=== PATIENT | male | born 2005 | race Caucasian/White ===

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

== ENCOUNTER 2024-04-03 16:50 | Emergency (ER) | payer BC ==
[~2024-04-03] VITALS: Ht 182.9 cm; Wt 74.8 kg
[2024-04-03 16:51] VITALS: O2SAT 99
[2024-04-03 16:55] VITALS: BP 109/49; PULSE 58; RESP 16; TEMP 98.6; O2SAT 99
== END 2024-04-03 19:34 | disposition home or self-care (01) ==
LOC: ER 16:50
DX: S63.502A Unspecified sprain of left wrist, initial encounter (principal); W18.39XA Other fall on same level, initial encounter; Y93.66 Activity, soccer; Y92.89 Other specified places as the place of occurrence of the external cause; Y99.8 Other external cause status
CPT/HCPCS: 73110; 99283

== ENCOUNTER → 2024-06-09 | Outpatient (CLI) | payer BC ==
[2024-06-09 12:53] LABS: CLARITY URINE CLEAR (CLEAR); COLOR URINE YELLOW (YELLOW); GLUCOSE URINE NEGATIVE (NEGATIVE); KETONES URINE NEGATIVE (NEGATIVE); NITRITE URINE NEGATIVE (NEGATIVE); OCCULT BLOOD URINE NEGATIVE (NEGATIVE); PROTEIN URINE NEGATIVE (NEGATIVE); SPECIFIC GRAVITY URINE 1.025 (1.005-1.030)
[2024-06-09 12:54] LABS: LEUKOCYTE ESTERASE URINE NEGATIVE (NEGATIVE); UROBILINOGEN URINE 0.2 E.U./dL (0.2-1.0)
[2024-06-09 13:03] LABS: CARBON DIOXIDE 29 mEq/L (21-32); CHLORIDE 105 mEq/L (98-107); POTASSIUM 4.2 mEq/L (3.5-5.1); SODIUM 139 mEq/L (136-145)
[2024-06-09 13:04] LABS: BASOPHILS % 0.7 % (0.0-2.0); CALCIUM 9.9 mg/dL (8.7-10.4); EOSINOPHILS % 3.2 % (0.0-5.0); HEMATOCRIT. 45.1 % (42.0-52.0); HEMOGLOBIN. 14.7 g/dL (14.0-18.0); LYMPHOCYTES % 44.3 % (20.0-50.0); MEAN CORPUSCULAR HEMOGLOBIN 28.8 pg (28.0-32.0); MEAN CORPUSCULAR HGB CONC 32.6 g/dL (31.0-37.0); MEAN CORPUSCULAR VOLUME 88.4 fL (80.0-94.0); MEAN PLATELET VOLUME 8.3 fl (7.4-10.4); MONOCYTES % 5.3 % (2.0-8.0); NEUTROPHILS % 46.5 % (40.0-76.0); PLATELET 220 x1000/uL (130-400); RED CELL DISTRIBUTION WIDTH 13.3 % (11.6-14.6); WHITE BLOOD COUNT 4.4 x1000/uL (4.5-11.0)
[2024-06-09 13:08] LABS: CREATININE 1.2 mg/dL (0.6-1.3); GLUCOSE 91 mg/dL (70-105); IRON 102 ug/dL (65-175)
[2024-06-09 13:09] LABS: TRIGLYCERIDE 131 mg/dL (0-150); UREA NITROGEN BLOOD 12 mg/dL (9-23)
[2024-06-09 13:10] LABS: ALANINE AMINOTRANSFERASE 10 IU/L (10-49); ALBUMIN 4.7 g/dL (3.2-4.8); ASPARTATE AMINOTRANSFERASE 13 IU/L (<34); LDL CHOLESTEROL 124 mg/dL (5-100)
[2024-06-09 13:11] LABS: BILIRUBIN TOTAL 1.6 mg/dL (0.1-1.0); CHOLESTEROL 172 mg/dL (<200); HDL CHOLESTEROL 33 mg/dL (>55); PROTEIN TOTAL 7.2 g/dL (6.0-8.3); TOTAL IRON BINDING CAPACITY 314 ug/dl (250-425)
[2024-06-09 13:12] LABS: T4 FREE 1.28 ng/dL (0.89-1.76)
[2024-06-09 13:30] LABS: FERRITIN 101 ng/mL (22-322)
[2024-06-09 13:31] LABS: VITAMIN B12 SERUM 404 pg/mL (211-911)
[2024-06-09 14:24] LABS: ERYTHROCYTE SEDIMENTATION RATE 2 mm/hr (0-15)
== END | disposition home or self-care (01) ==
LOC: LAB 12:12
PROVIDERS: ATTEND Specialist
DX: Z00.00 Encounter for general adult medical examination without abnormal findings (principal); E55.9 Vitamin D deficiency, unspecified; D50.9 Iron deficiency anemia, unspecified
CPT/HCPCS: 36415; 80053; 80061; 81003; 82306; 82607; 82728; 82746; 83036; 83540; 83550; 84439; 84481; 85025; 85651